=== PATIENT | male | born 1995 | race African-American/Black ===

== ENCOUNTER 2021-03-05 20:55 | Emergency (ER) | payer OTHER, MEDICAID ==
[~2021-03-05] VITALS: Ht 190.5 cm; Wt 68.0 kg
[2021-03-05 22:09] VITALS: BP 98/61
[2021-03-06] MEDS ORDERED: CEFTRIAXONE SODIUM 500 MG/VIAL IM ONE (00:30)
[2021-03-06] MEDS ORDERED: LIDOCAINE HCL 1% 20ML VIAL (Pyxis) INJ INFIL ONE (00:30)
[2021-03-06] MEDS ORDERED: LIDOCAINE HCL 1% 10 MG/ML 10ML VIAL IJ SCH ×2 (00:45)
[2021-03-06] MEDS ORDERED: DOXY-326 PO (00:55)
== END 2021-03-06 01:38 | disposition home or self-care (01) ==
LOC: ER 20:55
DX: A54.01 Gonococcal cystitis and urethritis, unspecified (principal)
CPT/HCPCS: 96372; 99283; J0696; J3490